=== PATIENT | female | born 1945 | race African-American/Black ===

== ENCOUNTER 2018-05-14 01:13 | Emergency (ER) | payer MEDICARE ==
[~2018-05-14] VITALS: Ht 144.8 cm; Wt 48.0 kg
[2018-05-14 03:39] LABS: BASOPHILS % 0.7 % (0.0-2.0); EOSINOPHILS % 2.6 % (0.0-5.0); HEMATOCRIT. 38.1 % (36.0-48.0); HEMOGLOBIN. 12.6 g/dL (12.0-16.0); LYMPHOCYTES % 62.9 % (20.0-50.0); MEAN CORPUSCULAR HEMOGLOBIN 31.3 pg (28.0-32.0); MEAN CORPUSCULAR VOLUME 94.8 fL (81.0-99.0); MEAN PLATELET VOLUME 7.6 fl (7.4-10.4); MONOCYTES % 9.5 % (2.0-8.0); NEUTROPHILS % 24.3 % (40.0-76.0); PLATELET 219 x1000/uL (130-400); RED BLOOD CELL COUNT 4.02 mill/uL (4.2-5.4); RED CELL DISTRIBUTION WIDTH 14.6 % (11.6-14.6)
[2018-05-14 03:46] LABS: CHLORIDE 107 mEq/L (98-107)
[2018-05-14 06:20] VITALS: BP 145/71
== END 2018-05-14 06:24 | disposition home or self-care (01) ==
LOC: ER 01:13
DX: I20.9 Angina pectoris, unspecified (principal); J44.9 Chronic obstructive pulmonary disease, unspecified; I10 Essential (primary) hypertension; F17.200 Nicotine dependence, unspecified, uncomplicated
CPT/HCPCS: 36415; 71045; 83880; 84484; 93005; 99284; 99406